=== PATIENT | female | born 1960 | race Caucasian/White ===

== ENCOUNTER 2018-07-08 09:14 | Day surgery (SDC) | payer OTHER ==
--- NOTE | 2018-07-02 16:09 | HP ---
HISTORY AND PHYSICAL: DATE OF ADMISSION/SURGERY: 07/08/18 DATE OF OFFICE VISIT: 07/02/18 SURGEON: Yokasta Brasher MD * (DICTATED BY VAUGHN TIJERINA) PROCEDURE: Left knee arthroscopy with partial meniscectomy, possible chondroplasty, and possible synovectomy. CHIEF COMPLAINT: Left knee pain. HISTORY OF PRESENT ILLNESS: Ms. Ho is a 57-year-old female who has failed conservative treatment. She is elected to proceed with left knee arthroscopy. PAST MEDICAL HISTORY: Hypothyroidism. PAST SURGICAL HISTORY: Right shoulder surgery x2, hysterectomy, D and C, C- section, carpal tunnel release, ulnar decompression, and bladder sling. CURRENT MEDICATIONS: 1. Oxycodone 10 mg. 2. Synthroid 112 mcg daily. 3. Zoloft 150 mg daily. 4. Gabapentin 100 mg. 5. Ibuprofen. 6. Multivitamin. 7. Symbicort. ALLERGIES: To PENICILLIN and SULFA. FAMILY HISTORY: Esophageal cancer, diabetes, and COPD. SOCIAL HISTORY: She is a 57-year-old female. She lives with her . She does not smoke or use drugs. She uses alcohol rarely. REVIEW OF SYSTEMS: A complete 14-point review of systems was reviewed with the patient. It was positive for hypothyroidism. She denies history of DVT, PE, hepatitis, HIV, or anesthesia problems. PHYSICAL EXAMINATION GENERAL: She is well developed, well nourished, in no acute distress. VITAL SIGNS: She stands 5 feet 5 inches tall, weighs 208 pounds. Her blood pressure is 116/72 and heart rate is 68. HEENT: Normocephalic, atraumatic. NECK: Supple. No palpable lymph nodes. PULMONARY: The lungs are clear to auscultation bilaterally. CARDIO: Regular rate and rhythm. Strong S1, S2. ABDOMEN: Soft, nontender, and nondistended. NEUROLOGICAL: She is alert and oriented x3. MUSCULOSKELETAL: Left lower extremity: The skin is intact. There are no open wounds or abrasions. There is a mild joint effusion. She has some tenderness over the medial joint line. Positive Apley's and Link's. Range of motion is 5 to 130 degrees. She has 2+ dorsalis pedis pulse. Intact sensation in her lower extremity. Muscle group strengths are intact at 5/5. ASSESSMENT AND PLAN: Ms. Ho is a 57-year-old female with complaints of left knee pain. An MRI confirms a medial meniscus tear. She has elected to proceed with left knee arthroscopy with partial meniscectomy, possible chondroplasty, and possible synovectomy. Surgery is scheduled for 07/08/[address] Brasher discussed the risks and benefits of the surgery at today's visit and all of her questions were answered. She will follow up with Dr. Brasher 2 weeks after the surgery. VAUGHN TIJERINA [id number]/[facility] #: [id number] MTDEvelina
[~2018-07-08 09:14] MED LIST: Buffered Lidocaine 0.9% SYRIN* 5 ML/SYR SYRINGE INTRADERM ONE; Bupivacaine 0.5%* 50 ML VIAL ONE; Dexamethasone IV* 4 MG/ML 1 ML (4 MG) IV SLOW PU ONE; EPINEPHRINE 1 MG/ML 1 ML VIAL ONE; Famotidine IV* 10 MG/ML 2 ML (20 mg) IV ONE; Lactated Ringers 1000 ML Bag* 1,000 ML IV SCH; methylPREDNISolone ACETATE 80* 80 MG/ML 1 ML VIAL ONE
[2018-07-08] MEDS ORDERED: ceFAZolin 2 GM PREMIX in ORs 0 GM/0 ML BAG IVPB ONE (09:39)
[2018-07-08] MEDS ORDERED: Famotidine IV* 10 MG/ML 2 ML (20 mg) ONE (09:39)
[2018-07-08] MEDS ORDERED: Dexamethasone IV* 4 MG/ML 1 ML (4 MG) ONE (09:39)
[2018-07-08] MEDS ORDERED: Clindamycin 900 MG/D5W BAG(*) 900 MG/50 ML BAG IVPB ONE (09:40)
[2018-07-08] MEDS ORDERED: fentaNYL* 50 MCG/ML 5 ML VIAL (250 MCG VIAL) ONE (09:47)
[2018-07-08] MEDS ORDERED: Midazolam* 1 MG/ML 5 ML VIAL (5 MG) ONE (09:47)
[2018-07-08] MEDS ORDERED: Levalbuterol 0.63MG/3ML NEB* UNIT OF USE INH ONE ×2 (10:21→10:22)
[2018-07-08] MEDS ORDERED: Bupivacaine 0.5%* 50 ML VIAL ONE (10:26)
[2018-07-08] MEDS ORDERED: Ondansetron INJ* 2 MG/ML VIAL ONE (10:30)
[2018-07-08] MEDS ORDERED: Propofol* 10 MG/ML 20 ML BTL ONE (10:43)
[2018-07-08] MEDS ORDERED: Ketorolac INJ* 30 MG/ML 1 ML VIAL ONE (10:43)
[2018-07-08] MEDS ORDERED: DiMENhydriNATE IV* 50 MG/ML VIAL IV PUSH PRN (10:56)
[2018-07-08] MEDS ORDERED: Naloxone* 0.4 MG/ML 1 ML VIAL IV PRN (10:56)
[2018-07-08] MEDS ORDERED: Ondansetron INJ* 2 MG/ML VIAL IV PRN (10:56)
[2018-07-08] MEDS ORDERED: fentaNYL* 50 MCG/ML 2 ML VIAL (100 MCG VIAL) IV PRN (10:56)
[2018-07-08] MEDS ORDERED: Scopolamine 1.5 mg* PATCH TRANSDERM PRN (10:56)
[2018-07-08] MEDS ORDERED: HYDROmorphone INJ1* 1 MG/ML SYRINGE IV PRN (10:56)
[2018-07-08] MEDS ORDERED: oxyCODONE/Acetamin 5/325 MG* TAB PO PRN (10:56)
[2018-07-08] MEDS ORDERED: Glycopyrrolate IV* 0.2 MG/ML 1 ML VIAL ONE (11:06)
[2018-07-08] MEDS ORDERED: Atropine 1MG/ML INJ* 1 ML VIAL ONE (11:06)
[2018-07-08 12:58] VITALS: BP 115/68
--- NOTE | 2018-07-09 05:24 | OP ---
DATE OF OPERATION: 07/08/18 - [facility] DATE OF : 64 SURGEON: Yokasta Brasher MD BUS ESCORT: VAUGHN Hernandez. Mr. Arteaga did help throughout the procedure with preparation of the leg, wound retraction, manipulation of the knee and wound closure. PRE-OP DIAGNOSES: Left knee medial meniscal tear with parameniscal cyst, mild- to- moderate osteoarthritis. POST-OP DIAGNOSES: Left knee medial meniscal tear with parameniscal cyst, mild- to- moderate osteoarthritis with anterior synovitis. OPERATIVE PROCEDURE: Left knee arthroscopy with partial medial meniscectomy, medial parameniscal cyst rasping, anterior synovectomy. COMPLICATIONS: None. ESTIMATED BLOOD LOSS: Less than 25 cc. SPECIMENS: None. BRIEF HISTORY/INDICATION: Ms. Ho is a 57-year-old female who developed several months of acute mechanical symptoms along the joint line of her left knee. She failed conservative treatment and went on to have an MRI, which did confirm a medial meniscal tear as well as a parameniscal cyst medially. Due to continued pain and mechanical symptoms, she elected to undergo left knee arthroscopy. Informed consent was obtained from the patient. She understood the risks of surgery included, but were not limited to bleeding, infection, damage to nearby structures, continued pain, need for further surgery, retear of the meniscus, reoccurrence of the cyst, progression of arthritis, stroke, heart attack, blood clot, and . She wished to proceed. INTRAOPERATIVE FINDINGS: Intraoperatively, the patient was noted to have a large medial meniscal tear involving the body and the red-white and red-red zone. She did have a parameniscal cyst, which the communication to the cyst was easily visualized. She had a large amount of anterior synovitis which did impinge with range of motion. She had grade 2 and 3 Outerbridge cartilage changes in the medial and patellofemoral compartment with worn cartilage. DESCRIPTION OF PROCEDURE: Ms. Ho was identified in the preanesthesia unit. Her left lower extremity was marked as the correct operative site. Informed consent was signed and placed in the chart. The patient was taken to the operating room and placed under general anesthesia. Left lower extremity was prepped and draped in the usual sterile fashion. Preop time-out was made to correctly identify the patient, side and site. Appropriate perioperative antibiotics were given within 1 hour of incision. A 1.5-cm anterolateral portal incision was made with a 10 blade and carried down through the capsule. Trocar was introduced. As soon as the light and water sources were turned on, there was immediate visualization of the supra- patellar pouch. A tour of the knee joint was performed. Suprapatellar pouch had no obvious abnormality. Patellofemoral compartment showed grade 2 and 3 Outerbridge cartilage changes with worn and frayed cartilage. Medial gutter showed no loose body or plica. Medial compartment showed grade 2 and 3 Outerbridge cartilage changes as well with some loss of cartilage along the medial femoral condyle. There was an obvious medial meniscal tear. There was a significant amount of anterior synovitis noted. The knee was placed in the [id number] position. There was no obvious meniscal tear. There were no significant degenerative changes. Lateral gutter showed no loose body or plica. Under direct visualization, a medial portal incision was made with a 10 blade. A probe was introduced. A second tour of the knee joint was performed. There were no additional findings noted. Radiofrequency ablation wand and shaver were used to perform anterior synovectomy. Visualization was much improved. Range of motion showed no further impingement of the anterior synovium. A shaver and straight biter were used to perform partial medial meniscectomy. Once this was performed, there was direct visualization of the communication with a parameniscal cyst. A rasp was used to roughen this area of the medial meniscus. Shaver was used to further smooth this area and the suction on the shaver did evacuate majority of the cyst. Radiofrequency ablation wand was used to coagulate this area to try to prevent reoccurrence of the cyst. Further probing of the medial meniscus showed no additional tears or flipped fragments. The medial meniscal tear was mainly in the mid portion of the medial meniscus in the red-white and red-red zone. The knee was copiously irrigated with sterile saline. All instruments were removed. Incisions were closed using 3-0 nylon suture. Intra-articular injection of 80 mg Depo-Medrol and 6 cc of 0.25% Marcaine was placed in the knee joint. The patient's anesthesia was reversed without difficulty. She was taken to the PACU in stable condition. Intended weightbearing will be weightbearing as tolerated. Intended DVT prophylaxis will be aspirin. [id number]/[facility] #: [id number] RAHEEL
== END 2018-07-08 14:07 | disposition home or self-care (01) ==
LOC: OR 09:14
PROVIDERS: ATTEND Orthopaedic Surgery Adult Reconstructive Orthopaedic Surgery
DX: M23.204 Derangement of unspecified medial meniscus due to old tear or injury, left knee (principal); M23.004 Cystic meniscus, unspecified medial meniscus, left knee; M17.12 Unilateral primary osteoarthritis, left knee; M65.862 Other synovitis and tenosynovitis, left lower leg; E03.9 Hypothyroidism, unspecified; G51.0 Bell's palsy; E66.3 Overweight
CPT/HCPCS: J0461; J0690; J1040; J1100; J1885; J2250; J2405; J2704; J3010

== ENCOUNTER → 2018-11-18 05:35 | Day surgery (SDC) | payer OTHER ==
--- NOTE | 2018-11-05 16:48 | HP ---
Amended report to enter cosigning physician. HISTORY AND PHYSICAL: DATE OF ADMISSION/SURGERY: 11/18/18 DATE OF OFFICE VISIT: 11/01/18 SURGEON: Yokasta Brasher MD* (dictated by VAUGHN Rico). PROCEDURE: Left knee arthroscopy with partial meniscectomy, possible chondroplasty, possible synovectomy, possible plica excision. CHIEF COMPLAINT: Left knee pain. HISTORY OF PRESENT ILLNESS: Ms. Ho is a 58-year-old female with continued complaints of left knee pain after a twisting injury. An MRI confirms a meniscus tear and she has elected to proceed with surgery. PAST MEDICAL HISTORY: Hypothyroidism and asthma. PAST SURGICAL HISTORY: Right shoulder arthroscopy x2, hysterectomy, D and C, left knee arthroscopy, , carpal tunnel release, ulnar decompression, and bladder sling. CURRENT MEDICATIONS: 1. Oxycodone 10 mg every 4 to 6 hours as needed. 2. Synthroid 112 mcg a day. 3. Zoloft 150 mg a day. 4. Gabapentin 100 mg 3 times a day. 5. Multivitamin. 6. Symbicort as needed. ALLERGIES: PENICILLIN and SULFA. FAMILY HISTORY: Cancer, diabetes, COPD. SOCIAL HISTORY: She is a 58-year-old female. She lives with her . She does not use tobacco or illicit drugs. REVIEW OF SYSTEMS: A complete 14-point review of systems reviewed with the patient. It was positive for hypothyroidism. She denies the history of DVT, PE , hepatitis, HIV, or anesthesia problems. PHYSICAL EXAMINATION GENERAL: She is well developed, well nourished, in no acute distress. VITAL SIGNS: She stands 65 inches tall, weighs 215 pounds. Blood pressure 110/ 72, heart rate 76. HEENT: Normocephalic, atraumatic. NECK: Supple, no palpable lymph nodes. PULMONARY: Lungs are clear to auscultation bilaterally. CARDIAC: Regular rate and rhythm. Strong S1 and S2. ABDOMEN: Soft, nontender, nondistended. NEUROLOGICAL: She is alert and oriented x3. MUSCULOSKELETAL: Left lower extremity, skin is intact. There are no open wounds or abrasions. There is a moderate effusion. Positive Link's. Positive Apley's. Negative Herminio. She has 2+ dorsalis pedis pulse. She is able to dorsiflex and plantarflex and has intact sensation. ASSESSMENT AND PLAN: Ms. oH is a 58-year-old female with complaints of left knee pain and MRI confirms a meniscus tear, she is elected to proceed with the left knee arthroscopy with partial meniscectomy, possible chondroplasty, possible synovectomy, possible plica excision. The surgery is scheduled for 09/[address] Brasher discussed the risks and benefits of the surgery at today's visit and all of her questions were answered. She will follow up with Dr. Brasher 2 weeks after the surgery. VAUGHN RICO [id number]/[facility] #: [id number] MTDD
[~2018-11-18 05:35] MED LIST changes: +Acetaminophen TAB* 325 MG PO PRN; -Buffered Lidocaine 0.9% SYRIN* 5 ML/SYR SYRINGE INTRADERM ONE; +Buffered Lidocaine 1% SYRIN* 1 ML/SYRINGE INTRADERM ONE; +Clindamycin 900 MG IVPREMIX(* 900 MG/50 ML SDV IV ONE; -Dexamethasone IV* 4 MG/ML 1 ML (4 MG) IV SLOW PU ONE; +Dexamethasone IV* 4 MG/ML 1 ML (4 MG) ONE; -Famotidine IV* 10 MG/ML 2 ML (20 mg) IV ONE; +HYDROmorphone INJ1* 1 MG/ML SYRINGE ONE; +Ketorolac INJ* 30 MG/ML 1 ML VIAL ONE; +Lidocaine 2% PF * 5 ML VIAL ONE; +Midazolam* 1 MG/ML 2 ML VIAL (2 MG) ONE; +Naloxone* 0.4 MG/ML 1 ML VIAL IV PRN; +Ondansetron INJ* 2 MG/ML VIAL ONE; +Propofol* 10 MG/ML 20 ML BTL ONE; +fentaNYL* 50 MCG/ML 2 ML VIAL (100 MCG VIAL) ONE; +oxyCODONE/Acetamin 5/325 MG* TAB ONE
[2018-11-18] MEDS: HYDROmorphone INJ1* 1 MG/ML SYRINGE IV PRN ×4 (08:44→09:06)
[2018-11-18 09:55] VITALS: BP 111/73
--- NOTE | 2018-11-19 02:20 | OP ---
DATE OF OPERATION: 11/18/18 - [facility] DATE OF : 64 ATTENDING SURGEON: Yokasta Brasher MD FILM AND VIDEO GRAPHICS DESIGNER: VAUGHN Vazquez. Ms. Avila did help throughout the procedure with preparation of the leg, wound retraction, manipulation of the knee, and wound closure. ANESTHESIOLOGIST: Dr. Gregg. ANESTHESIA: General. PRE-OP DIAGNOSES: Left knee medial meniscal tear, mild osteoarthritis. POST-OP DIAGNOSES: Left knee medial meniscal tear, swybldby-mb-robtea osteoarthritis. OPERATIVE PROCEDURE: Left knee arthroscopy with partial medial meniscectomy. COMPLICATIONS: None. ESTIMATED BLOOD LOSS: Less than 25 cc. SPECIMEN: None. BRIEF HISTORY/INDICATION: Ms. Ho is a 58-year-old female who had a meniscal tear several months ago. Arthroscopy was quite successful until she had a fall. She had a re-tear of the medial meniscus and has symptoms of posterior medial joint pain since then. She has failed conservative treatment with intraarticular steroid injection, physical therapy and brace wear. She elected to undergo a repeat arthroscopy with partial meniscectomy because of continued pain and decreased quality of life. Informed consent was obtained from the patient, she understood the risks of surgery included but were not limited to bleeding, infection, damage to nearby structures, continued pain, need for further surgery, intraoperative complications, re-tear of the meniscus , heart attack, blood clot, . INTRAOPERATIVE FINDINGS: Intraoperatively, the patient was noted to have a parrot- beak type tear along the posteromedial meniscus involving the red-white zone. She had explosive chondral bone along the posterior femoral condyle and posterior medial tibial plateau, Outerbridge cartilage changes in the medial compartment. DESCRIPTION OF PROCEDURE: Ms. Ho was identified in the preanesthesia unit. Her left lower extremity was marked as the correct operative side. Informed consent was signed and placed in the chart. The patient was taken to the operating room and placed under general anesthesia. Left lower extremity was prepped and draped in the usual sterile fashion. Preop time-out was made to correctly identify the patient, side, and site. Appropriate perioperative antibiotics were given within 1 hour of incision. A 0.5 cm anterolateral portal incision was made with a 10 blade and carried down to the capsule. A trocar was introduced. As soon as light and water sources were turned on, there was immediate visualization of the suprapatellar pouch. A tour of the knee joint was performed. Suprapatellar pouch had no obvious abnormalities. Patellofemoral compartment has grade 1 and 2 Outerbridge cartilage changes. There was minimal degenerative changes in the patellofemoral compartment. Medial gutters showed no loose body or plica. Medial compartment showed explosive chondral bone along the posterior aspect of the femoral condyle and the posterior aspect of the medial tibial plateau. These were grade 3 and 4 Outerbridge cartilage changes. There was a parrot-beak type tear in the posterior horn of the medial meniscus with anterior displacement into the joint space. ACL and PCL appeared to be intact. The knee was placed in the bmwikx-ba-qwuq position. There was minimal degenerative changes in the lateral compartment and no obvious meniscal tear. Lateral gutter had no loose body or plica. Under direct visualization, a medial portal incision was made with a 10 blade. A probe was introduced. A tour of the knee joint was performed. No additional findings were noted. Straight biter and shaver were used to perform partial medial meniscectomy. A smooth border of the medial meniscus was obtained posteriorly in the white-red and red-red zone. Radiofrequency ablation wand was used to further smooth the edge of the meniscus. Further probing of the medial meniscus showed no additional tears or displaced fragments. The knee was copiously irrigated with sterile saline. All instruments were carefully removed. The incisions were closed using interrupted 3-0 nylon suture. Intra-articular injection of 80 mg Depo-Medrol and 6 cc of 0.25% Marcaine was placed in the knee joint. The patient's incisions were covered with Xeroform, 4x4's, Webril and Rock wrap. Cold packs were placed over this. The patient's anesthesia was reversed without difficulty. She was taken to the PACU in stable condition. Intended weightbearing will be weightbearing as tolerated. Intended DVT prophylaxis will be aspirin. [id number]/[facility] #: [id number] RAHEEL
== END | disposition home or self-care (01) ==
LOC: OR 05:35
PROVIDERS: ATTEND Orthopaedic Surgery Adult Reconstructive Orthopaedic Surgery
DX: S83.242A Other tear of medial meniscus, current injury, left knee, initial encounter (principal); M17.12 Unilateral primary osteoarthritis, left knee; W19.XXXA Unspecified fall, initial encounter; Y92.9 Unspecified place or not applicable; E03.9 Hypothyroidism, unspecified; J45.909 Unspecified asthma, uncomplicated; M54.9 Dorsalgia, unspecified; Z79.891 Long term (current) use of opiate analgesic
CPT/HCPCS: A9270-GY; J1040; J1100; J1170; J1885; J2250; J2405; J2704; J3010; J3490

== ENCOUNTER → 2019-05-23 12:30 | Day surgery (SDC) | payer OTHER ==
[~2019-05-23 12:30] MED LIST changes: +Acetaminophen IV 1GM/100ML * 100 ML ONE; -Acetaminophen TAB* 325 MG PO PRN; +Bupivacaine 0.25% SDV PF* 10 ML VIAL INJ ONE; -Bupivacaine 0.5%* 50 ML VIAL ONE; -Clindamycin 900 MG IVPREMIX(* 900 MG/50 ML SDV IV ONE; +Clindamycin 900 MG/D5W BAG(*) 900 MG/50 ML BAG IVPB ONE; -Dexamethasone IV* 4 MG/ML 1 ML (4 MG) ONE; +Dexamethasone TAB* 4 MG ONE; +Dexamethasone TAB* 4 MG PO ONE; +DiMENhydriNATE IV* 50 MG/ML VIAL IV PUSH PRN; -EPINEPHRINE 1 MG/ML 1 ML VIAL ONE; +Famotidine IV* 10 MG/ML 2 ML (20 mg) IV ONE; +Famotidine IV* 10 MG/ML 2 ML (20 mg) ONE; +HYDROmorphone INJ1* 1 MG/ML SYRINGE IV PRN; +KETAMINE HCL* 50 MG/ML 10 ML VIAL ONE; -Midazolam* 1 MG/ML 2 ML VIAL (2 MG) ONE; +Midazolam* 1 MG/ML 5 ML VIAL (5 MG) ONE; -Ondansetron INJ* 2 MG/ML VIAL ONE; +Ondansetron ODT TAB* 4 MG ONE; +Ondansetron ODT TAB* 4 MG PO ONE; +PROCHLORPERAZINE INJ 5 MG/ML 2 ML VIAL IV PRN; +PROCHLORPERAZINE INJ 5 MG/ML 2 ML VIAL ONE; +Scopolamine 1.5 mg* PATCH ONE; +Scopolamine 1.5 mg* PATCH TRANSDERM PRN; +Scopolamine PATCH Remove* 1 NOTE MISC PATCH OFF ONE; +fentaNYL* 50 MCG/ML 2 ML VIAL (100 MCG VIAL) IV PRN; -methylPREDNISolone ACETATE 80* 80 MG/ML 1 ML VIAL ONE; +oxyCODONE TAB* 5 MG TAB PO PRN; -oxyCODONE/Acetamin 5/325 MG* TAB ONE
[2019-05-23 20:44] VITALS: BP 131/70
--- NOTE | 2019-05-24 04:45 | OP ---
DATE OF OPERATION: 05/23/19 - [facility] DATE OF : 64 SURGEON: Jose Luis Dalton MD. DEPUTY CHIEF SHERIFF: VAUGHN Chu. An actuarial assistant was needed for the entirety of the procedure to aid in positioning of the arm and retraction. ANESTHESIOLOGIST: Dr. Sykes. ANESTHESIA: General. 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 OPERATIVE PROCEDURES: 1. Reconstruction of right middle finger metacarpophalangeal joint radial collateral ligament with palmaris longus tendon graft. 2. Reconstruction of ring finger metacarpophalangeal joint radial collateral ligament with palmaris longus tendon graft. INDICATIONS: Ms. Ho has the aforementioned injury. 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 We had talked about risks and benefits. She had wanted to proceed with surgery. ESTIMATED BLOOD LOSS: 5 mL. COMPLICATIONS: None. FINDINGS: See above and below. DESCRIPTION OF PROCEDURE: Ms. Ho was seen in the preoperative holding area. The correct, site, side and procedure were identified. We came back to the operating room. The arm was prepped and draped in the usual fashion and a time-out was performed. The arm was exsanguinated with the Esmarch, and the tourniquet was inflated to 250 mmHg. I made curvilinear incisions around the dorsal radial aspect of both MCP joints. Dissection was carried out and full-thickness flaps were raised off the tendon sheath. I then went ahead and starting with the middle finger incised along the radial sagittal band. I then dissected down and the sagittal band from the joint capsule and remnant of the radial collateral ligament. There was a little bit of collagen tissue there. I went ahead and tried to mobilize the ligament, and really it was just extremely degenerative and just a couple of nodules of collagen, and nothing that could be repaired. I went ahead and excised all the soft tissues there in anticipation for reconstruction. In like manner, I then released the radial sagittal band at the ring finger and looked for a remnant in my radial collateral ligament; there was none. I just went ahead and really excised all the soft tissue off the base of the proximal phalanx and off the collateral recess in the metacarpal head. After I had debrided everything, I went ahead and used a 2.0 followed by 2.4 mm drill bit to create bone tunnel along the radial aspect of the proximal base of the proximal phalanx starting at about 1 o'clock and going down to 5 o'clock. I then used a 3.2 mm drill bit to create a unicortical drill hole about intermediate through the metacarpal head centered right in the isometric point of the collateral recess. I then made a 1 cm incision just over the distal aspect of the palmaris longus tendon. The tendon was freed up and delivered up out of the wound. It was released and then a 3-0 suture was whip-stitched into the end of the tendon. I used the tendon stripper to release the entire length of the tendon at the musculotendinous junction. I then went ahead and used a 2-0 Prolene to suture shuttle my FiberWire sutures through the bone tunnel in the proximal phalanx of the ring finger. The tendon graft passed easily. I then measured and snipped my tendon graft to the appropriate length. I whip-stitched another 3-0 FiberWire suture into the other end of the tendon graft. I then used Peewee needles to pass one limb of each whip stitch through the unicortical bone tunnel in the metacarpal head and neck out the ulnar side. I retrieved the Peewee needle on the other side with a Landy and was able to bend it and deliver it up in between the metacarpal heads. I kept about a centimeter of bone bridge between the 2 sets of sutures that came out; one was distal and one was proximal. I then docked both limbs of my tendon graft into the bone tunnel. I secured both limbs to the tendon graft with a 3-0 Ethibond [id number] suture. I then set maximum tension with the finger extended and radially deviated at the MCP joint while I tied off the 3-0 FiberWire suture over the ulnar sided bone bridge. There was excellent tightness. I went ahead and checked the tightness, and it was looking very good. The finger was nice, just a little supinated. It had excellent stability. I went ahead and augmented my tendon graft on the radial side with a couple of figure-of- eight 3-0 Ethibond sutures. I did the exact same thing on the middle finger. I passed my tendon graft through the bone tunnel and delivered the sutures out the ulnar side using the Peewee needle. Maximum tension was set as the tendon graft was tied down and multiple 3-0 Ethibond xyipoa-ka-[id number] sutures were secured to the graft on the radial side. At this point, both fingers were in very nice position. There was excellent stability. I irrigated out the wound. The sagittal bands were repaired back to the extensor tendon with 4-0 PDS suture on both fingers. The skin was closed with 4-0 nylon suture. Marcaine 0.25% was infiltrated throughout the area. I did go ahead and let the tourniquet down during wound closure as we were at 2-1/2 hours. Wounds were dressed with Xeroform, 4x4, sterile Webril, and then a short arm splint with the MCP joints extended but allowing for IP joint flexion was applied. The middle and ring fingers were taped to the index finger with some silk tape. She was taken to the recovery room in stable condition. [id number]/[facility] #: [id number] RAHEEL
== END | disposition home or self-care (01) ==
LOC: OR 12:30
PROVIDERS: ATTEND Orthopaedic Surgery Hand Surgery
DX: S63.652A Sprain of metacarpophalangeal joint of right middle finger, initial encounter (principal); S63.654A Sprain of metacarpophalangeal joint of right ring finger, initial encounter; X58.XXXA Exposure to other specified factors, initial encounter; Y92.9 Unspecified place or not applicable; J45.909 Unspecified asthma, uncomplicated; E03.9 Hypothyroidism, unspecified; F41.8 Other specified anxiety disorders; Z87.891 Personal history of nicotine dependence; Z88.0 Allergy status to penicillin; Z88.1 Allergy status to other antibiotic agents
CPT/HCPCS: A9270-GY; J0780; J1170; J1885; J2250; J2704; J3010; J3490; J8540